=== PATIENT | female | born 1945 | race Caucasian/White ===

== ENCOUNTER 2025-07-05 18:22 | Emergency (ER) | payer MEDICARE ==
[~2025-07-05] VITALS: Ht 167.6 cm; Wt 72.8 kg
[2025-07-05 19:43] LABS: VENOUS BASE EXCESS -4.3 (-2.0-2.0); VENOUS HCO3 20.6 MMOL/L (23.0-27.0); VENOUS O2 SATURATION 54.7 % (60.0-80.0); VENOUS PARTIAL PRESSURE CO2 36.9 mmHg (38.0-50.0); VENOUS PARTIAL PRESSURE O2 28.8 mmHg (30.0-50.0); VENOUS PH 7.364 UNITS (7.330-7.430); VENOUS STANDARD HCO3 20.1 MMOL/L; VENOUS TOTAL CO2 21.7 MMOL/L (24.0-28.0)
[2025-07-05 19:49] LABS: BASO # 0.0 10^3/uL (0.0-0.2); BASO % 0.3 % (0.0-1.0); EOS # 0.2 10^3/uL (0.0-0.5); EOS % 3.2 % (0.0-3.0); LYMPH # 1.2 10^3/uL (1.5-5.0); LYMPH % 19.8 % (24.0-44.0); MONO # 0.8 10^3/uL (0.0-0.8); MONO % 12.7 % (2.0-8.0); NEUTROPHILS # 3.8 10^3/uL (1.5-8.5); NEUTROPHILS % 63.7 % (36.0-66.0); PLATELET COUNT, AUTOMATED 205 10^3/uL (150-450)
[2025-07-05 20:14] LABS: ESTIMATED AVERAGE GLUCOSE 183.0 MG/DL (60-110)
[2025-07-05 20:24] LABS: ALT/SGPT 64.0 U/L (7.0-40); AST/SGOT 49.0 U/L (<34); CALCIUM LEVEL 8.7 MG/DL (8.3-10.6); CARBON DIOXIDE LEVEL 24.0 MMOL/L (20-31); CHLORIDE LEVEL 106.0 MMOL/L (98-107); CREATININE FOR GFR 0.77 MG/DL (0.55-1.30); GLOMERULAR FILTRATION RATE 78.9 (>39); POTASSIUM SERUM 4.0 MMOL/L (3.5-5.1); SODIUM LEVEL 142.0 MMOL/L (136-145)
[2025-07-05 20:42] LABS: OSMOLALITY SERUM 310.0 MOSM/KG (280-301)
[2025-07-05 21:54] LABS: ACETONE/KETONE 1.99 MMOL/L (0.02-0.27)
[2025-07-05 22:08] LABS: CK-MB VALUE MASS 1.3 NG/ML (<3.6)
[2025-07-05 22:09] LABS: CPK CREATINE PHOSPHOKINASE 150.0 U/L (34-145); MB/CK RELATIVE INDEX 0.86 (< OR =4)
[2025-07-05 23:38] LABS: CK-MB VALUE MASS 2.0 NG/ML (<3.6)
[2025-07-05 23:39] LABS: CPK CREATINE PHOSPHOKINASE 146.0 U/L (34-145); MB/CK RELATIVE INDEX 1.36 (< OR =4)
[2025-07-06 01:43] LABS: KETONE, URINE AUTO RFX 2+ mg/dL (NEGATIVE); LEUKOCYTE ESTERASE UR AUTO RFX 1+ (NEGATIVE); MUCUS, URINE RFX SMALL (NEGATIVE); NITRITE, URINE AUTO RFX NEGATIVE (NEGATIVE); RBC, URINE AUTO RFX 2 /HPF (0-3); SQUAM EPITHELIAL CELL UR AURFX 0 /HPF (0-6); WBC, URINE AUTO RFX 43 /HPF (0-3)
[2025-07-06] MEDS ORDERED: LASI20TA3 PO (02:14)
[2025-07-06 02:28] VITALS: BP 144/65
[2025-07-06] MEDS: FUROSEMIDE 20 MG TAB PO ONE (02:28)
[2025-07-06 02:35] VITALS: BP 144/65; TEMP 97.8; O2SAT 98
== END 2025-07-06 02:37 | disposition home or self-care (01) ==
LOC: M ED 18:22
DX: R22.43 Localized swelling, mass and lump, lower limb, bilateral (principal); R79.89 Other specified abnormal findings of blood chemistry; I25.2 Old myocardial infarction; E10.9 Type 1 diabetes mellitus without complications; I10 Essential (primary) hypertension; F10.10 Alcohol abuse, uncomplicated; Z79.899 Other long term (current) drug therapy